=== PATIENT | male | born 1975 | race African-American/Black ===

== ENCOUNTER 2018-07-19 20:42 | Inpatient (IN) | payer OTHER ==
[~2018-07-19] VITALS: Ht 175.3 cm; Wt 129.1 kg
[2018-07-19 21:30] LABS: CALCIUM 8.7 mg/dL (8.5-10.1); CARBON DIOXIDE 27.8 mmol/L (21-32); CHLORIDE SERUM 105 mmol/L (98-107); CREATININE SERUM 1.3 mg/dL (0.7-1.3); GFR1 > 60 mL/min; GLUCOSE SERUM 92 mg/dL (74-106); POTASSIUM SERUM 4.3 mmol/L (3.5-5.1); SODIUM SERUM 141 mmol/L (136-145)
[2018-07-19 21:31] LABS: BASOPHIL % 0.5 % (0-2); PLATELET COUNT 224 x10^3mcL (130-400)
[2018-07-19 21:32] LABS: RED CELL DISTRIBUTION WIDTH 17.7 % (11.5-14.5)
[2018-07-19 22:01] LABS: ALBUMIN 3.7 g/dL (3.4-5.0); ALKALINE PHOSPHATASE 81 U/L (46-116); ALT/SGPT 55 U/L (16-63); AST/SGOT 30 U/L (15-37); BILIRUBIN TOTAL 0.25 mg/dL (0.20-1.00)
[2018-07-19] MEDS ORDERED: GOOD SENSE OMEP20 MG PO (22:50)
[2018-07-19] MEDS ORDERED: NOR10 PO (22:50)
[2018-07-19] MEDS ORDERED: METOPROLOL SUCC25 M2 PO (22:51)
[2018-07-19] MEDS ORDERED: LIPITOR80 MG PO (22:52)
[2018-07-19] MEDS ORDERED: APAP500 MG PO (22:54)
[2018-07-19] MEDS ORDERED: NITROSTAT0.4 MG SL (22:55)
[2018-07-19] MEDS ORDERED: BACOO OD (22:55)
[2018-07-19] MEDS ORDERED: SELENIUM SULFI120 M1 (22:56)
[2018-07-19 23:28] VITALS: BP 132/94
[2018-07-19 23:35] VITALS: Ht 175.3 cm; Wt 129.1 kg
[2018-07-20 00:17] LABS: MAGNESIUM 2.3 mg/dL (1.8-2.4)
[2018-07-20 00:20] LABS: CHOLESTEROL/HDL RATIO 2.1
[2018-07-20 05:44] VITALS: BP 110/50
[2018-07-20 06:53] LABS: CARBON DIOXIDE 29.4 mmol/L (21-32); CHLORIDE SERUM 105 mmol/L (98-107); CREATININE SERUM 1.3 mg/dL (0.7-1.3); GFR1 > 60 mL/min; GLUCOSE SERUM 153 mg/dL (74-106); SODIUM SERUM 140 mmol/L (136-145)
[2018-07-20 07:05] LABS: BASOPHIL % 0.2 % (0-2); PLATELET COUNT 233 x10^3mcL (130-400); RED CELL DISTRIBUTION WIDTH 16.9 % (11.5-14.5)
[2018-07-20 09:12] LABS: microscopic required? NO
[2018-07-20 09:23] VITALS: BP 142/95
[2018-07-20 11:22] LABS: UA SPECIFIC GRAVITY 1.025 (1.005-1.035); urine erythrocyte NEGATIVE (NEGATIVE)
[2018-07-20 11:34] LABS: AMPHETAMINE QUAL UR NONE DETECTED (See below)
[2018-07-20 12:45] VITALS: BP 127/83
[2018-07-20 16:13] VITALS: BP 135/82
[2018-07-20 20:30] VITALS: BP 128/82
[2018-07-21 05:47] VITALS: BP 119/72
[2018-07-21 08:24] VITALS: BP 119/62
[2018-07-21 12:10] VITALS: BP 126/85
[2018-07-21 17:11] VITALS: BP 125/69
[2018-07-21 20:22] VITALS: BP 125/61
[2018-07-22 06:08] VITALS: BP 121/78
[2018-07-22 09:16] VITALS: BP 132/76
[2018-07-22 16:25] VITALS: BP 132/76
[2018-07-22 17:35] VITALS: BP 117/59
[2018-07-22 20:33] VITALS: BP 117/59
[2018-07-22 21:16] VITALS: BP 108/52
== END 2018-07-22 22:20 | disposition other institution (70) | DRG 313 ==
LOC: EDBD 20:42 → ED 20:42 → DU 22:27
PROVIDERS: Emergency Medicine; Internal Medicine
DX: R07.89 Other chest pain (principal); I10 Essential (primary) hypertension; I25.10 Atherosclerotic heart disease of native coronary artery without angina pectoris; J45.909 Unspecified asthma, uncomplicated; R09.1 Pleurisy; E66.9 Obesity, unspecified; Z79.899 Other long term (current) drug therapy
CPT/HCPCS: 83880; 85378; A9500; J2270; J2405; J2785; J2930; J3010; J7620; Q0092